=== PATIENT | male | born 1960 | race Caucasian/White ===

== ENCOUNTER 2022-06-13 13:58 | Emergency (ER) | payer BC, SELFPAY ==
--- NOTE | ~2022-06-13 | XR_ITS ---
XR shoulder LT min 2V DATE: 06/13/2022 14:24 INDICATION: Fall on lateral aspect of shoulder. Clavicle and left shoulder pain TECHNIQUE: 4 views COMPARISON: None FINDINGS: There is diffuse osteopenia. No fracture or dislocation, periosteal reaction or bone destru ction or abnormal soft tissue calcification. There is degenerative change at the left acromioclavicular joint. IMPRESSION: Osteopenia Mild degenerative change at the left acromioclavicular joint No fracture or dislocation of left clavicle or left shoulder Reviewed, dictated and finalized at location A.
--- NOTE | 2022-06-13 14:02 | ED.UPPEXIN ---
HPI - Extremity Injury (Upper) General Chief Complaint: Extremity Injury, Upper Stated Complaint: left shoulder collar bone injury Time Seen by Provider: 06/13/22 14:02 Source: patient and RN notes reviewed History of Present Illness HPI narrative: Patient is a 61-year-old male who presents the urgent care with complaints of left shoulder and clavicle pain. Patient states that he was ripping out dominguez a week ago today and tripped over the dominguez rolled. Patient states he landed directly onto the left lateral shoulder. Patient states that he has broke the left clavicle in the past. Patient is left-handed. States that he was taking Tylenol and ibuprofen and the pain seemed to have been better. Patient states that he continued has normal activities and mowed the lawn yesterday. States that at 1:30 AM after taking Tylenol and ibuprofen he woke up with excruciating pain in the left shoulder. Patient states that he has no chest pain or shortness of breath and has recently had his yearly physical with his PCP and everything, including EKG, was within normal limits. Patient has no cardiac history. Patient states pain is exacerbated with left upper extremity movement. No other acute complaints. No acute distress noted. Patient aware of the plan of care. Some parts of this dictation were generated by voice recognition software and may contain typographical and/or grammatical inaccuracies. Related Data Home Medications Medication Instructions Recorded Confirmed aspirin 81 mg tablet,delayed mg 06/13/22 release atorvastatin 40 mg tablet mg 06/13/22 lisinopril 10 mg tablet mg 06/13/22 Allergies Allergy/AdvReac Type Severity Reaction Status Date / Time No Known Allergies Allergy Verified 06/13/22 14:16 Review of Systems Review of Systems: CONSTITUTIONAL: Denies fever, chills, or sweats. EYES: Denies visual changes, redness, or discharge. ENT: Denies rhinorrhea, congestion, sore throat, or otalgia. CARDIOVASCULAR: Denies chest pain, palpitations, or edema. RESPIRATORY: Denies cough or dyspnea. GASTROINTESTINAL: Denies abdominal pain, nausea, vomiting, or diarrhea. GENITOURINARY: Denies dysuria or hematuria. SKIN: Denies rash or itching. MUSCULOSKELETAL: reports of left collar bone and shoulder pain NEUROLOGIC: Denies headache, numbness, or weakness. All other systems reviewed are negative, except as documented in HPI. PMFSH Comments At the time of my signature, I reviewed and agree with the nursing past medical, surgical, social, and family history. There is no relevant family history pertinent to the patient complaint. Exam Narrative: GENERAL: This is a well-nourished, well-developed patient, in no apparent distress. HEAD: normocephalic, atraumatic. EYES: PERRL. Sclera clear/white. Vision is grossly intact. EARS: External ears normal NOSE: External nose normal with no obvious nasal discharge, nares without redness, no rhinorrhea. THROAT: Mucous membranes moist NECK: Neck supple CARDIOVASCULAR: Regular rate and rhythm without murmurs, gallops, or rubs. RESPIRATORY: Clear to auscultation. Breath sounds equal bilaterally. No wheezes, rales, or rhonchi. SKIN: warm, intact with no suspicious lesions or rash, good texture and turgor. NEURO: awake, alert, and oriented to person, place and time. There were no obvious focal neurologic abnormalities. EXTREMITIES: Range of motion to left upper extremity within normal limits due to pain. Mild anterior and posterior left shoulder joint tenderness. No step-off or crepitus to the left clavicle. Course Course Level of Care: Express Care Visit Vital Signs Vital signs: Vital Signs Temperature 97.3 F L 06/13/22 14:12 Pulse Rate 86 06/13/22 14:12 Respiratory Rate 16 06/13/22 14:12 Blood Pressure 134/78 06/13/22 14:12 Pulse Oximetry 95 06/13/22 14:12 Oxygen Delivery Room Air 06/13/22 14:12 Temperature 97.3 F L 06/13/22 14:12 Pulse Rate 86
[2022-06-13 14:12] VITALS: BP 134/78; PULSE 86; RESP 16; TEMP 36.3; O2SAT 95
== END 2022-06-13 15:10 | disposition home or self-care (01) ==
PROVIDERS: Emergency Provider Nurse Practitioner Family; PCP Family Medicine
DX: M25.512 Pain in left shoulder (principal); E78.00 Pure hypercholesterolemia, unspecified; I10 Essential (primary) hypertension
CPT/HCPCS: 73030; 99213; G0463